=== PATIENT | male | born 1995 | race American Indian/Alaskan Native ===

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

== ENCOUNTER 2020-08-11 16:03 | Emergency (ER) | payer SELFPAY ==
[2020-08-11 16:12] VITALS: BP 112/82
--- NOTE | 2020-08-11 16:42 | XRay Report ---
RIGHT SHOULDER 3 VIEW(S) INDICATION / CLINICAL INFORMATION: dislocation with shoulder pain. COMPARISON: None available. FINDINGS: BONES / JOINT(S): No acute fracture or dislocation. Possible slight superior displacement of the dist al right clavicle relative to the acromion which could represent grade 1-2 AC joint separation. SOFT TISSUES: No significant abnormality. ADDITIONAL FINDINGS: None. Signer Name: Oskar Boland MD Signed: 08/11/2020 4:38 PM Workstation Name: [id number]
== END 2020-08-11 16:30 | disposition left against medical advice (07) ==
LOC: ED 16:03
DX: M25.511 Pain in right shoulder (principal); Z53.21 Procedure and treatment not carried out due to patient leaving prior to being seen by health care provider